=== PATIENT | female | born 1985 | race Caucasian/White ===

== ENCOUNTER 2017-11-17 15:49 | Emergency (ER) | payer MEDICARE, MEDICAID ==
[2017-11-17 17:13] LABS: #Basophils 0.1 thou/uL (0.0-0.2); #Eosinphils 0.1 thou/uL (0.0-0.7); #Lymphocytes 4.1 thou/uL (1.20-3.40); #Monocytes 0.6 thou/uL (0.11-0.59); #Neutrophils 4.6 thou/uL (1.40-6.50); %Basophils 0.9 % (0.0-1.0); %Eosinophils 1.3 % (0.0-10.0); %Lymphocytes 43.1 % (21.0-51.0); %Monocytes 6.4 % (0.0-10.0); %Neutrophils 48.3 % (42.0-75.0); Hemoglobin 14.3 g/dL (12.0-16.0); Mean Corpuscular HGB CONC 34.3 g/dL (32.0-36.0); Mean Corpuscular Hemoglobin 30.8 pg (27.0-31.0); Mean Corpuscular Volume 89.8 fl (81.0-99.0); Mean Platelet Volume 6.6 fL (7.4-10.4); Platelet Count 424 thou/uL (130-400); RBC Distribution Width 11.9 % (11.5-14.5); Red Blood Cell (RBC) Count 4.66 mill/uL (4.20-5.40); White Blood Cell (WBC) Count 9.5 thou/uL (4.8-10.8)
[2017-11-17 17:35] LABS: ALT (SGPT) 21 U/L (8-55); AST (SGOT) 12 U/L (5-34); Albumin 4.2 g/dL (3.5-5.0); Alkaline Phosphatase 82 U/L (40-150); Anion Gap 17 mmol/L (10-20); BUN (Urea Nitrogen) 10 mg/dL (7.0-18.7); Bilirubin, Total 0.2 mg/dL (0.2-1.2); Calc. Creatinine Clearance 0 mL/min (70-130); Calcium 10.1 mg/dL (7.8-10.44); Carbon Dioxide 19 mmol/L (22-29); Chloride 104 mmol/L (98-107); Estimated GFR-MDRD 89; Globulin 3.6 g/dL (2.4-3.5); Glucose 244 mg/dL (70-105); Protein, Total 7.8 g/dL (6.0-8.3); Sodium 136 mmol/L (136-145)
[2017-11-17 18:15] LABS: Bilirubin Negative (Negative); Blood, Urine Negative (Negative); Clarity CLEAR (Clear); Glucose, Urine (Dipstick) >=1000 mg/dL (Negative); Leukocyte Negative (Negative); Nitrite Negative (Negative); Protein, Urine (Dipstick) Negative (Neg-Trace); Specific Gravity, Urine 1.036 (1.002-1.036); Urobilinogen 0.2 mg/dL (0.2-1.0); pH, Urine 5.5 (5.0-9.0)
[2017-11-17 18:42] LABS: BHCG - Serum Negative (NEGATIVE); Pregs Control Background? CLEAR/WHITE (CLR/WHITE); Pregs Control Bar Appear? YES (CONTROL BAR)
[2017-11-17] MEDS ORDERED: Metoclopramide HCl 10 MG/2 ML VIAL ONE (18:48)
[2017-11-17] MEDS ORDERED: diphenhydrAMINE 50 MG/ML VIAL ONE ×2 (18:48→19:43)
== END 2017-11-17 20:36 | disposition home or self-care (01) ==
LOC: ERS 15:49
DX: B34.9 Viral infection, unspecified (principal); E78.5 Hyperlipidemia, unspecified; E11.9 Type 2 diabetes mellitus without complications; J45.909 Unspecified asthma, uncomplicated; F31.9 Bipolar disorder, unspecified; F17.210 Nicotine dependence, cigarettes, uncomplicated
CPT/HCPCS: 36415; 80053; 81003; 84703; 85025; 96361; 96365; 96375; 96376; J1200; J2765

== ENCOUNTER 2019-01-08 12:44 | Emergency (ER) | payer MEDICARE, MEDICAID ==
[2019-01-08 14:16] LABS: Bilirubin Negative (Negative); Blood, Urine Large (Negative); Clarity CLEAR (Clear); Glucose, Urine (Dipstick) >=1000 mg/dL (Negative); Leukocyte Negative (Negative); Nitrite Negative (Negative); Protein, Urine (Dipstick) Negative (Neg-Trace); Specific Gravity, Urine 1.036 (1.002-1.036); Urobilinogen 0.2 mg/dL (0.2-1.0); pH, Urine 5.5 (5.0-9.0)
[2019-01-08 14:18] LABS: Bacteria/HPF Rare-Few HPF (None Seen); Hyaline Casts/LPF 0-3 HYALINE CAST LPF (0-3 Hyaline); WBC/HPF 0-3 HPF (0-3)
[2019-01-08 14:19] LABS: Yeast-AUWi Flag 59.8 (0-25.0)
[2019-01-08 14:33] LABS: RBC/HPF 0-3 HPF (0-3); Transitional Epithelial 0-3 HPF (0-3)
[2019-01-08 14:36] LABS: Yeast-All Forms None Seen HPF (None Seen)
[2019-01-08 14:48] LABS: #Eosinphils 0.2 thou/uL (0.0-0.7); #Lymphocytes 3.7 thou/uL (1.20-3.40); #Monocytes 0.7 thou/uL (0.11-0.59); #Neutrophils 5.5 thou/uL (1.40-6.50); %Basophils 0.4 % (0.0-1.0); %Eosinophils 1.8 % (0.0-10.0); %Lymphocytes 36.6 % (21.0-51.0); %Monocytes 6.4 % (0.0-10.0); %Neutrophils 54.7 % (42.0-75.0); Hemoglobin 13.2 g/dL (12.0-16.0); Mean Corpuscular HGB CONC 33.8 g/dL (32.0-36.0); Mean Corpuscular Hemoglobin 30.1 pg (27.0-31.0); Mean Corpuscular Volume 89.1 fL (78.0-98.0); Platelet Count 414 thou/uL (130-400); RBC Distribution Width 12.1 % (11.5-14.5); Red Blood Cell (RBC) Count 4.38 mill/uL (4.20-5.40); White Blood Cell (WBC) Count 10.1 thou/uL (4.8-10.8)
[2019-01-08 15:09] LABS: ALT (SGPT) 15 U/L (8-55); AST (SGOT) 8 U/L (5-34); Alkaline Phosphatase 75 U/L (40-150); Anion Gap 14 mmol/L (10-20); BUN (Urea Nitrogen) 14 mg/dL (7.0-18.7); Bilirubin, Total Less than 0.2 mg/dL (0.2-1.2); Calc. Creatinine Clearance 0 mL/min (70-130); Calcium 9.6 mg/dL (7.8-10.44); Carbon Dioxide 22 mmol/L (22-29); Chloride 102 mmol/L (98-107); Estimated GFR-MDRD 79; Globulin 3.5 g/dL (2.4-3.5); Glucose 381 mg/dL (70-105); Potassium 3.4 mmol/L (3.5-5.1); Protein, Total 7.5 g/dL (6.0-8.3); Sodium 135 mmol/L (136-145)
[2019-01-08] MEDS ORDERED: Acetaminophen/Codeine 30-300mg Tablet ONE (16:47)
--- NOTE | 2019-01-08 17:41 | ULT ---
EXAM: US Pelvic transvaginal HISTORY: Pain COMPARISON: None Findings: The uterus measures 7.7 x 4.5 x 5.4 cm. Endometrial thickness is 7 mm. The HCG is less than 1. The right ovary measures 1.9 x 1.4 x 2.3 cm. The left ovary measures 4.6 x 4.6 x 5.1 cm. There is a 4 .3 cm septated cyst with internal papillary projections. No free fluid in the cul-de-sac. IMPRESSION: 1. Abnormal left adnexal/ovarian cyst with internal papillary projections. This may reflect an o ld hemorrhage within a cyst, although an underlying malignancy process cannot be excluded. A followup ultrasound in 3 to 6 weeks is recommended. 2. No intrauterine . POS: ABHI
== END 2019-01-08 17:56 | disposition home or self-care (01) ==
LOC: ERS 12:44
DX: O34.81 Maternal care for other abnormalities of pelvic organs, first trimester (principal); N83.202 Unspecified ovarian cyst, left side; O99.281 Endocrine, nutritional and metabolic diseases complicating pregnancy, first trimester; E78.5 Hyperlipidemia, unspecified; E11.9 Type 2 diabetes mellitus without complications; O99.511 Diseases of the respiratory system complicating pregnancy, first trimester; J45.909 Unspecified asthma, uncomplicated; O99.341 Other mental disorders complicating pregnancy, first trimester; F31.9 Bipolar disorder, unspecified; O99.331 Smoking (tobacco) complicating pregnancy, first trimester; F17.210 Nicotine dependence, cigarettes, uncomplicated; Z3A.01 Less than 8 weeks gestation of pregnancy
CPT/HCPCS: 36415; 76856; 80053; 81003; 81015; 84702; 85025

== ENCOUNTER 2019-07-13 10:46 | Emergency (ER) | payer MEDICARE, MEDICAID ==
[2019-07-13] MEDS ORDERED: Ondansetron PF 4 MG/2 ML Vial ONE (13:12)
[2019-07-13 13:43] LABS: #Basophils 0.1 thou/uL (0.0-0.2); #Eosinphils 0.3 thou/uL (0.0-0.7); #Lymphocytes 4.3 thou/uL (1.20-3.40); #Monocytes 0.7 thou/uL (0.11-0.59); #Neutrophils 5.7 thou/uL (1.40-6.50); %Basophils 0.5 % (0.0-1.0); %Eosinophils 2.3 % (0.0-10.0); %Lymphocytes 38.8 % (21.0-51.0); %Monocytes 6.3 % (0.0-10.0); %Neutrophils 52.1 % (42.0-75.0); Hemoglobin 12.8 g/dL (12.0-16.0); Mean Corpuscular HGB CONC 34.7 g/dL (32.0-36.0); Mean Corpuscular Volume 83.8 fL (78.0-98.0); Mean Platelet Volume 6.7 fL (7.4-10.4); Platelet Count 436 thou/uL (130-400); RBC Distribution Width 13.3 % (11.5-14.5); Red Blood Cell (RBC) Count 4.42 mill/uL (4.20-5.40)
[2019-07-13 13:53] LABS: BHCG - Serum Negative (NEGATIVE); Pregs Control Background? CLEAR/WHITE (CLR/WHITE); Pregs Control Bar Appear? YES (CONTROL BAR)
[2019-07-13 13:59] LABS: Bilirubin Negative (Negative); Blood, Urine Negative (Negative); Clarity Clear (Clear); Glucose, Urine (Dipstick) Greater than 1000 mg/dL (Negative); Leukocyte Negative Leu/uL (Negative); Nitrite Negative (Negative); Protein, Urine (Dipstick) Negative (Neg-Trace); Urobilinogen Normal mg/dL (Less than 2)
[2019-07-13 14:05] LABS: ALT (SGPT) 14 U/L (8-55); AST (SGOT) 9 U/L (5-34); Alkaline Phosphatase 73 U/L (40-150); Anion Gap 15 mmol/L (10-20); BUN (Urea Nitrogen) 9 mg/dL (7.0-18.7); Bilirubin, Total 0.2 mg/dL (0.2-1.2); CK (CPK) 49 U/L (29-168); Calc. Creatinine Clearance 0 mL/min (70-130); Calcium 9.2 mg/dL (7.8-10.44); Carbon Dioxide 22 mmol/L (22-29); Chloride 104 mmol/L (98-107); Estimated GFR-MDRD Greater than 90; Globulin 3.2 g/dL (2.4-3.5); Glucose 113 mg/dL (70-105); Lipase 6 U/L (8-78); Potassium 3.1 mmol/L (3.5-5.1); Protein, Total 7.2 g/dL (6.0-8.3); Sodium 138 mmol/L (136-145)
== END 2019-07-13 16:06 | disposition home or self-care (01) ==
LOC: ERS 10:46
DX: R11.2 Nausea with vomiting, unspecified (principal); R19.7 Diarrhea, unspecified; E78.00 Pure hypercholesterolemia, unspecified; E78.5 Hyperlipidemia, unspecified; E11.9 Type 2 diabetes mellitus without complications; J45.909 Unspecified asthma, uncomplicated; F31.9 Bipolar disorder, unspecified; F17.210 Nicotine dependence, cigarettes, uncomplicated; Z79.899 Other long term (current) drug therapy; Z79.84 Long term (current) use of oral hypoglycemic drugs
CPT/HCPCS: 36415; 80053; 81003; 82550; 83605; 83690; 84703; 85025; 94760; 96361; 96372; 96374; J0500; J2405

== ENCOUNTER 2019-07-20 21:07 | Emergency (ER) | payer MEDICARE, MEDICAID | END 2019-07-20 21:45 | disposition left against medical advice (07) | LOC: ERS 21:07 | DX: Z53.21 Procedure and treatment not carried out due to patient leaving prior to being seen by health care provider (principal) ==

== ENCOUNTER 2019-07-25 00:14 | Emergency (ER) | payer MEDICARE, MEDICAID ==
[2019-07-25] MEDS ORDERED: diphenhydrAMINE 50 MG CAP ONE (00:32)
[2019-07-25] MEDS ORDERED: Famotidine 20 MG TAB ONE (00:41)
== END 2019-07-25 00:49 | disposition home or self-care (01) ==
LOC: ERS 00:14
DX: L50.9 Urticaria, unspecified (principal); E11.9 Type 2 diabetes mellitus without complications; J45.909 Unspecified asthma, uncomplicated; F31.9 Bipolar disorder, unspecified; F17.210 Nicotine dependence, cigarettes, uncomplicated; Z79.84 Long term (current) use of oral hypoglycemic drugs; Z79.899 Other long term (current) drug therapy
CPT/HCPCS: 36416; 99283; Q0163

== ENCOUNTER 2019-09-16 19:29 | Emergency (ER) | payer MEDICARE, MEDICAID ==
--- NOTE | 2019-09-16 20:17 | RAD ---
THREE VIEWS OF THE RIGHT WRIST: 09/16/19 COMPARISON: None. HISTORY: Fall, trauma, pain. FINDINGS: There is no widening of the scapholunate interval. There is no displaced fracture or evidence of disl ocation. Alignment appears normal on the lateral view. If symptoms persists, follow-up in 7-10 days w ith dedicated scaphoid views advised. IMPRESSION: No acute findings. POS: ANGELINE
== END 2019-09-16 20:30 | disposition home or self-care (01) ==
LOC: ERS 19:29
DX: S63.501A Unspecified sprain of right wrist, initial encounter (principal); E11.9 Type 2 diabetes mellitus without complications; E78.00 Pure hypercholesterolemia, unspecified; F31.9 Bipolar disorder, unspecified; F17.210 Nicotine dependence, cigarettes, uncomplicated; J45.909 Unspecified asthma, uncomplicated; X50.0XXA Overexertion from strenuous movement or load, initial encounter; Y99.0 Civilian activity done for income or pay

== ENCOUNTER 2019-09-30 19:04 | Emergency (ER) | payer MEDICARE, MEDICAID | END 2019-09-30 19:44 | disposition home or self-care (01) | LOC: ERS 19:04 | DX: J11.1 Influenza due to unidentified influenza virus with other respiratory manifestations (principal); E11.9 Type 2 diabetes mellitus without complications; E78.00 Pure hypercholesterolemia, unspecified; F17.210 Nicotine dependence, cigarettes, uncomplicated | CPT/HCPCS: 87081; 87430; 87804; 99283 ==

== ENCOUNTER 2019-10-10 11:53 | Emergency (ER) | payer MEDICARE, MEDICAID ==
[2019-10-10] MEDS ORDERED: Magnesium 2 GM/50 ML BAG (IN WATER) ONE (12:55)
[2019-10-10] MEDS ORDERED: Dexamethasone 10 MG/ML VIAL ONE (12:55)
[2019-10-10] MEDS ORDERED: Fentanyl 100 MCG/2 ML VIAL ONE (12:55)
[2019-10-10] MEDS ORDERED: Albuterol Sulfate 2.5 mg/3 ml Neb ONE (12:56)
[2019-10-10] MEDS ORDERED: Magnesium 2 GM/50 ML 2 GM in Premix Bag 1 BAG IVPB SCH (13:00)
[2019-10-10 13:08] LABS: #Eosinphils 0.3 thou/uL (0.0-0.7); #Lymphocytes 3.6 thou/uL (1.20-3.40); #Monocytes 0.8 thou/uL (0.11-0.59); %Basophils 0.3 % (0.0-1.0); %Eosinophils 3.3 % (0.0-10.0); %Monocytes 7.9 % (0.0-10.0); %Neutrophils 51.5 % (42.0-75.0); Hemoglobin 13.4 g/dL (12.0-16.0); Mean Corpuscular HGB CONC 34.3 g/dL (32.0-36.0); Mean Corpuscular Hemoglobin 28.9 pg (27.0-31.0); Mean Corpuscular Volume 84.1 fL (78.0-98.0); Mean Platelet Volume 6.7 fL (7.4-10.4); Platelet Count 484 thou/uL (130-400); RBC Distribution Width 12.3 % (11.5-14.5); Red Blood Cell (RBC) Count 4.65 mill/uL (4.20-5.40); White Blood Cell (WBC) Count 9.6 thou/uL (4.8-10.8)
--- NOTE | 2019-10-10 13:16 | RAD ---
EXAM: Single view of the chest HISTORY: Cough for 3 days COMPARISON: 03/10/2016 FINDINGS: Single view of the chest shows a normal sized cardiomediastinal silhouette. There is no mariluz dence of consolidation, mass, or pleural effusion. The bones are unremarkable. IMPRESSION: No evidence of acute cardiopulmonary disease
[2019-10-10 13:44] LABS: ALT (SGPT) 13 U/L (8-55); AST (SGOT) 10 U/L (5-34); Alkaline Phosphatase 93 U/L (40-110); Anion Gap 14 mmol/L (10-20); BUN (Urea Nitrogen) 9 mg/dL (7.0-18.7); Bilirubin, Total 0.4 mg/dL (0.2-1.2); Calc. Creatinine Clearance 0 mL/min (70-130); Calcium 9.5 mg/dL (7.8-10.44); Carbon Dioxide 24 mmol/L (22-29); Chloride 102 mmol/L (98-107); Estimated GFR-MDRD 89; Globulin 3.5 g/dL (2.4-3.5); Glucose 264 mg/dL (70-105); Potassium 3.2 mmol/L (3.5-5.1); Protein, Total 7.5 g/dL (6.0-8.3); Sodium 137 mmol/L (136-145)
[2019-10-10] MEDS ORDERED: Potassium Chloride 20 MEQ TAB ONE (14:00)
== END 2019-10-10 14:58 | disposition home or self-care (01) ==
LOC: ERS 11:53
DX: J45.901 Unspecified asthma with (acute) exacerbation (principal); H66.91 Otitis media, unspecified, right ear; E11.9 Type 2 diabetes mellitus without complications; J45.909 Unspecified asthma, uncomplicated; F31.9 Bipolar disorder, unspecified; F17.210 Nicotine dependence, cigarettes, uncomplicated
CPT/HCPCS: 71045; 80053; 85025; 94640; 94644; 96361; 96365; 96375; 96376; J1100; J3010; J3475; J7611; J7620

== ENCOUNTER 2021-10-13 17:56 | Emergency (ER) | payer OTHER, MEDICARE, MEDICAID ==
[2021-10-13] MEDS ORDERED: Acetaminophen 500 MG TAB ONE (21:38)
== END 2021-10-13 21:49 | disposition home or self-care (01) ==
LOC: ERS 17:56
DX: S43.401A Unspecified sprain of right shoulder joint, initial encounter (principal); S40.011A Contusion of right shoulder, initial encounter; E78.00 Pure hypercholesterolemia, unspecified; E11.9 Type 2 diabetes mellitus without complications; J45.909 Unspecified asthma, uncomplicated; F17.210 Nicotine dependence, cigarettes, uncomplicated; Z79.899 Other long term (current) drug therapy; W01.0XXA Fall on same level from slipping, tripping and stumbling without subsequent striking against object, initial encounter

== ENCOUNTER 2022-03-05 20:23 | Emergency (ER) | payer MEDICARE, MEDICAID ==
[2022-03-05 21:17] LABS: #Basophils 0.1 thou/uL (0.0-0.2); #Eosinphils 0.2 thou/uL (0.0-0.7); #Lymphocytes 3.5 thou/uL (1.20-3.40); #Monocytes 0.8 thou/uL (0.11-0.59); #Neutrophils 7.4 thou/uL (1.40-6.50); %Basophils 0.5 % (0.0-1.0); %Eosinophils 1.9 % (0.0-10.0); %Lymphocytes 29.4 % (21.0-51.0); %Monocytes 6.7 % (0.0-10.0); %Neutrophils 61.5 % (42.0-75.0); Hemoglobin 13.4 g/dL (12.0-16.0); Mean Corpuscular HGB CONC 33.6 g/dL (32.0-36.0); Mean Corpuscular Hemoglobin 29.5 pg (27.0-31.0); Mean Corpuscular Volume 87.8 fL (78.0-98.0); Mean Platelet Volume 6.6 fL (7.4-10.4); Platelet Count 454 thou/uL (130-400); RBC Distribution Width 12.4 % (11.5-14.5); Red Blood Cell (RBC) Count 4.54 mill/uL (4.20-5.40)
[2022-03-05] MEDS ORDERED: Lorazepam 1 MG TAB ONE (21:22)
[2022-03-05] MEDS ORDERED: Nicotine 14 MG PATCH ONE (21:22)
[2022-03-05 21:41] LABS: ALT (SGPT) 9 U/L (8-55); AST (SGOT) 7 U/L (5-34); Acetaminophen Less than 10.0 mcg/mL (10.0-30.0); Alcohol Less than 10 mg/dL (Less than 10); Alkaline Phosphatase 86 U/L (40-110); Anion Gap 16 mmol/L (10-20); BUN (Urea Nitrogen) 11 mg/dL (7.0-18.7); Bilirubin, Total Less than 0.2 mg/dL (0.2-1.2); Calc. Creatinine Clearance 0 mL/min (70-130); Carbon Dioxide 21 mmol/L (22-29); Chloride 101 mmol/L (98-107); Globulin 3.4 g/dL (2.4-3.5); Glucose 420 mg/dL (70-105); Potassium 3.2 mmol/L (3.5-5.1); Protein, Total 7.4 g/dL (6.0-8.3); Salicylate Less than 8.0 mg/dL (15.0-30.0); Sodium 135 mmol/L (136-145)
[2022-03-05 21:47] LABS: Bilirubin Negative (Negative); Blood, Urine Negative (Negative); Clarity Clear (Clear); Glucose, Urine (Dipstick) Greater than 1000 mg/dL (Negative); Ketone, Urine Negative (Negative); Leukocyte Negative Leu/uL (Negative); Nitrite Negative (Negative); Protein, Urine (Dipstick) Negative (Neg-Trace); Specific Gravity, Urine 1.034 (1.002-1.036); Urobilinogen Normal mg/dL (Less than 2); pH, Urine 5.5 (5.0-9.0)
[2022-03-05 21:48] LABS: Pregnancy Test - Urine (BHCG) Negative (Negative); Pregu Control Background? CLEAR/WHITE (CLR/WHITE); Pregu Control Bar Appear? YES (CONTROL BAR); Specific Gravity 1.034 (1.002-1.036)
[2022-03-05 21:53] LABS: Amphetamine Not Detected (NotDetected); Barbiturates Screen Not Detected (NotDetected); Benzodiazepine Screen Not Detected (NotDetected); Cocaine Metabolite Screen Not Detected (NotDetected); Methadone Not Detected (NotDetected); Methamphetamine Not Detected (NotDetected); Opiate Screen Not Detected (NotDetected); Oxycodone Screen Not Detected (NotDetected); Phencyclidine (PCP) Not Detected (NotDetected); THC/Cannabinoid Screen Not Detected (NotDetected); Tricyclic Screen Not Detected (NotDetected)
[2022-03-05] MEDS ORDERED: Acetaminophen 325 MG TAB ONE (22:56)
[2022-03-05] MEDS ORDERED: metFORMIN 500 MG TAB PO SCH (23:15)
[2022-03-05] MEDS ORDERED: glipiZIDE 5 MG TAB PO SCH (23:15)
[2022-03-06] MEDS ORDERED: oxyCODONE 5 MG TAB PO SCH (00:30)
[2022-03-06 02:17] LABS: SARS-CoV-2 NAA Rapid Test Not Detected (NotDetected)
[2022-03-06] MEDS ORDERED: Lorazepam 1 MG TAB ONE (03:25)
[2022-03-06] MEDS ORDERED: tiZANidine HCl 4 MG TAB PO SCH (06:15)
[2022-03-06] MEDS ORDERED: diphenhydrAMINE 25 MG CAP ONE (08:34)
== END 2022-03-06 11:09 ==
LOC: ERS 20:23
DX: R45.851 Suicidal ideations (principal); Z20.822 Contact with and (suspected) exposure to COVID-19; E11.9 Type 2 diabetes mellitus without complications; E78.00 Pure hypercholesterolemia, unspecified; J45.909 Unspecified asthma, uncomplicated; F17.210 Nicotine dependence, cigarettes, uncomplicated; Z79.84 Long term (current) use of oral hypoglycemic drugs; Z79.899 Other long term (current) drug therapy; F31.9 Bipolar disorder, unspecified
CPT/HCPCS: 80306; 80307 ×2; 81003; 81025; 82962; 93005; U0002; 36415; 36416; 80053; 84443; 85025

== ENCOUNTER 2022-05-19 00:07 | Emergency (ER) | payer MEDICARE, MEDICAID ==
[2022-05-19 01:09] LABS: #Basophils 0.1 thou/uL (0.0-0.2); #Eosinphils 0.3 thou/uL (0.0-0.7); #Lymphocytes 3.4 thou/uL (1.20-3.40); #Neutrophils 10.8 thou/uL (1.40-6.50); %Basophils 0.4 % (0.0-1.0); %Monocytes 6.2 % (0.0-10.0); %Neutrophils 69.4 % (42.0-75.0); Hemoglobin 13.5 g/dL (12.0-16.0); Mean Corpuscular HGB CONC 35.5 g/dL (32.0-36.0); Mean Corpuscular Volume 87.2 fL (78.0-98.0); Mean Platelet Volume 6.6 fL (7.4-10.4); Platelet Count 361 thou/uL (130-400); RBC Distribution Width 12.3 % (11.5-14.5); Red Blood Cell (RBC) Count 4.36 mill/uL (4.20-5.40); White Blood Cell (WBC) Count 15.6 thou/uL (4.8-10.8)
[2022-05-19 01:27] LABS: ALT (SGPT) Less than 7 U/L (8-55); AST (SGOT) 5 U/L (5-34); Albumin 3.7 g/dL (3.5-5.0); Alkaline Phosphatase 94 U/L (40-110); Anion Gap 19 mmol/L (10-20); BUN (Urea Nitrogen) 7 mg/dL (7.0-18.7); Bilirubin, Total Less than 0.2 mg/dL (0.2-1.2); Calc. Creatinine Clearance 0 mL/min (70-130); Calcium 9.2 mg/dL (7.8-10.44); Carbon Dioxide 15 mmol/L (22-29); Chloride 103 mmol/L (98-107); Estimated GFR 100; Globulin 3.4 g/dL (2.4-3.5); Glucose 387 mg/dL (70-105); Lipase 17 U/L (8-78); Potassium 3.6 mmol/L (3.5-5.1); Protein, Total 7.1 g/dL (6.0-8.3); Sodium 133 mmol/L (136-145)
[2022-05-19] MEDS ORDERED: predniSONE 20 MG TAB ONE (01:45)
== END 2022-05-19 02:50 | disposition home or self-care (01) ==
LOC: ERS 00:07
DX: J20.9 Acute bronchitis, unspecified (principal); E78.00 Pure hypercholesterolemia, unspecified; E11.9 Type 2 diabetes mellitus without complications; F17.210 Nicotine dependence, cigarettes, uncomplicated
CPT/HCPCS: 36415; 71045; 80053; 83690; 84484; 85025; 93005; J7512; J7620

== ENCOUNTER 2022-05-25 20:08 | Emergency (ER) | payer MEDICARE, MEDICAID ==
[2022-05-25 21:21] LABS: #Basophils 0.1 thou/uL (0.0-0.2); #Eosinphils 0.2 thou/uL (0.0-0.7); #Lymphocytes 4.7 thou/uL (1.20-3.40); #Monocytes 0.7 thou/uL (0.11-0.59); #Neutrophils 6.5 thou/uL (1.40-6.50); %Basophils 0.6 % (0.0-1.0); %Lymphocytes 38.4 % (21.0-51.0); %Monocytes 5.9 % (0.0-10.0); %Neutrophils 53.1 % (42.0-75.0); Hemoglobin 13.6 g/dL (12.0-16.0); Mean Corpuscular HGB CONC 33.4 g/dL (32.0-36.0); Mean Corpuscular Hemoglobin 29.2 pg (27.0-31.0); Mean Corpuscular Volume 87.2 fL (78.0-98.0); Mean Platelet Volume 6.7 fL (7.4-10.4); Platelet Count 415 thou/uL (130-400); RBC Distribution Width 11.9 % (11.5-14.5); Red Blood Cell (RBC) Count 4.67 mill/uL (4.20-5.40); White Blood Cell (WBC) Count 12.2 thou/uL (4.8-10.8)
[2022-05-25 21:39] LABS: ALT (SGPT) 10 U/L (8-55); AST (SGOT) 8 U/L (5-34); Albumin 3.7 g/dL (3.5-5.0); Alkaline Phosphatase 83 U/L (40-110); Anion Gap 16 mmol/L (10-20); BUN (Urea Nitrogen) 6 mg/dL (7.0-18.7); Bilirubin, Total 0.2 mg/dL (0.2-1.2); Calc. Creatinine Clearance 0 mL/min (70-130); Calcium 9.3 mg/dL (7.8-10.44); Carbon Dioxide 24 mmol/L (22-29); Chloride 100 mmol/L (98-107); Estimated GFR 115; Globulin 3.4 g/dL (2.4-3.5); Glucose 274 mg/dL (70-105); Potassium 3.5 mmol/L (3.5-5.1); Protein, Total 7.1 g/dL (6.0-8.3); Sodium 136 mmol/L (136-145)
== END 2022-05-25 22:32 | disposition home or self-care (01) ==
LOC: ERS 20:08
DX: H57.02 Anisocoria (principal); E78.00 Pure hypercholesterolemia, unspecified; E11.9 Type 2 diabetes mellitus without complications; F17.210 Nicotine dependence, cigarettes, uncomplicated
CPT/HCPCS: 36415; 70450; 80053; 85025; 93005